=== PATIENT | male | born 1950 | race Caucasian/White ===

== ENCOUNTER 2016-12-10 09:11 | Emergency (ER) | payer BC, OTHER ==
--- NOTE | 2016-12-10 09:24 | EDM.PDOC ---
ED HPI NEURO - General Chief Complaint: Neuro Symptoms/Deficits Stated Complaint: NUMBNESS IN R HAND/TONGUE Time Seen by Provider: 12/10/16 09:22 Source of Information: Reports: Patient History Limitations: Reports: No limitations - History of Present Illness INITIAL COMMENTS - FREE TEXT/NARRATIVE: 65-year-old male presents to the ED stating that he appreciates the right hemifacial paresthesias and that half of his tongue did not feel right upon awakening around 0330 hours this morning. He drank some water and had no trouble swallowing. Subsequently he identified that his right arm and hand were getting weaker and he dropped his [place] could not offer about a cup of coffee. He appreciated things do not go right into him to the ED. Of note he states he was in atrial fibrillation and underwent ablation surgery about 12 years ago in [place] and was off medication ever since. On the monitor today he's in atrial fibrillation in the 130s. He is aware of slight palpitations at times but he is unaware of how long he could of been in atrial fibrillation. He has a slight headache. No nausea or vomiting. No visual acuity changes. He can walk again does not feel off balance. Symptom Onset Date: 12/10/16 Symptom Onset Time: 03:30 Timing/Duration: Reports: Hour(s): Location (Neuro Complaint): Reports: face (This is usually wakes up to get ready for work.), upper extremity, right (Right hand and forearm aren't working right) Quality (Neuro Complaint): Reports: numbness, tingling, weakness, altered sensation, altered speech (Face and right hand speech is altered because his tongue wasn't working right.). Denies: altered gait Severity: moderate Improves with: Reports: None Worsens with: Reports: None Context, General: Reports: Other (With the symptoms of one 0330 hours this morning). Denies: Activity, Exercise, Lifting, Sick contact, Trauma Associated Symptoms: Reports: headaches. 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 As usual.) - Related Data Allergies/ADRs: Allergies Allergy/AdvReac Type Severity Reaction Status Date / Time No Known Allergies Allergy Verified 12/10/16 09:58 Home Meds: Home Meds Aspirin [Ecotrin] 325 mg PO DAILY 11/18/14 [History] Past Medical History Cardiovascular History: Reports: Afib (Was fibrillation and had underwent cardiac ablation in [place] 12 years ago was taken off meds at that time he has no allergies never gone back into atrial fibrillation prior.) Musculoskeletal History: Reports: Back pain, chronic, Osteoarthritis (Occasional ) Social & Family History - Tobacco Use Smoking Status *Q: Never Smoker - Recreational Drug Use Recreational Drug Use: No - Living Situation & Occupation Living situation: Reports: Occupation: employed ED ROS GENERAL - Review of Systems Review Of Systems: See Below Constitutional: Denies: fever, chills, malaise, weakness, fatigue HEENT: Reports: Glasses. Denies: Contact Lenses, Dental pain, Ear discharge Respiratory: Reports: No Symptoms Cardiovascular: Reports: Palpitations (He is aware of some menorrhagia next chest but cannot really identify that his heart was racing per se.) Endocrine: Reports: no symptoms GI/Abdominal: Reports: No symptoms : Reports: no symptoms, other Musculoskeletal: Reports: back pain (Nocturia x2) Skin: Reports: no symptoms, change in color Neurological: Reports: No Symptoms, Headache, Numbness (Slight), Paresthesia ( right side of his face right tongue right hand.), Tingling (One status post right total), Trouble Speaking, Weakness, Change in Speech. Denies: Dizziness, Pre-Existing Deficit ( right forearm and right hand. ), Seizure, Syncope, Tremors (Sounds dysarthric because his tongue wasn't working right.), Difficulty Walking, Gait Disturbance Psychiatric: Reports: No symptoms Hematologic/Lymphatic: Reports: no symptoms Immunologic: Reports: no symptoms ED EXAM, NEURO - Physical Exam Exam: See Below Exam Limited By: No limitations General Appearance: alert, WD/WN, anxious, mild distress Eye Exam: bilateral eye: normal fundi, normal inspection, PERRL Ears: normal TMs Throat/Mouth: Normal inspection, Normal lips, Normal teeth, Normal gums, Normal oropharynx Head Exam: atraumatic, normocephalic Neck: normal inspection, supple, non-tender, full range of motion. No: carotid bruit, lymphadenopathy (L), lymphadenopathy (R), thyromegaly Respiratory/Chest: no respiratory distress, lungs clear, normal breath sounds, no accessory muscle use Cardiovascular: no edema (Monitor reveals a fibrillation in the 130s.), no gallop, no murmur, no rub, irregularly irregular GI/Abdominal: normal bowel sounds, soft, non tender, no organomegaly, no abnormal bruit, no mass, other (Male) Exam: No hernia (Mildly obese.) Neurological: alert, normal mood/affect, normal dorsiflexion, normal gait, oriented x 3, abnormal sensation (To pinprick hands and forearm.), other (H. is dysarthric. Tongue is working well. Your glucose slightly to the right side. Push against cheek with his tongue equally bilaterally.). No: CN II-XII intact , normal reflexes, abnormal finger to nose, Babinski, tremor, straight leg raise (L), saddle anesthesia, difficulty walking DTR: 0: achilles (R), achilles (L), 1+: bicep (R), bicep (L), patella (R), patella (L) Back Exam: normal inspection, full range of motion. No: CVA tenderness (L), CVA tenderness (R) Extremities: normal inspection, normal range of motion (Grade 4/5 motor power and tone in the right upper extremity.), non-tender, no pedal edema, normal capillary refill, other (No pronator drift.) Psychiatric: normal affect, normal mood Skin Exam: Warm, Dry, Intact, Normal color, No rash EKG INTERPRETATION EKG Date: 12/10/16 Time: 09:35 Rhythm: a-fib (With rate 96 260 per minute.) Rate (beats/min): 132 [place]: normal P-wave: absent QRS: normal ST-T: depressed (Minimal ST depression V4 to V6 leads.) QT: normal Course - Vital Signs Last Recorded V/S: Last Vital Signs Temp Pulse 103 H 12/10/16 10:07 Resp BP 97/65 12/10/16 10:07 Pulse Ox - Orders/Labs/Meds Orders: Active Orders 24 hr Category Date Time Status Blood Glucose Check, Bedside [RC] ONETIME Care 12/10/16 09:24 Active EKG Documentation Completion [RC] STAT Care 12/10/16 09:23 Active Chest 1V Frontal [CR] Stat Exams 12/10/16 09:23 Taken Diltiazem [Cardizem] 100 mg Med 12/10/16 10:00 Active Sodium Chloride 0.9% [Normal Saline] 100 ml IV ASDIRECTED Sodium Chloride 0.9% [Normal Saline] 1,000 ml Med 12/10/16 09:30 Active IV ASDIRECTED Medication Orders Sodium Chloride (Normal Saline) 1,000 mls @ 150 mls/hr IV ASDIRECTED MIRELA Last Admin: 12/10/16 10:02 Dose: 150 mls/hr Diltiazem HCl 100 mg/ Sodium (Chloride) 100 mls @ 10 mls/hr IV ASDIRECTED MIRELA PRN Reason: 10 MG/HR Last Admin: 12/10/16 10:07 Dose: 10 mg/hr, 10 mls/hr Labs: Laboratory Tests 12/10/16 12/10/16 12/10/16 Range/Units 09:25 09:25 09:25 WBC 6.16 (4.23-9.07) K/mm3 RBC 5.04 (4.63-6.08) M/mm3 Hgb 14.8 (13.7-17.5) gm/L Hct 43.0 (40.1-51.0) % MCV 85.3 (79.0-92.2) fl MCH 29.4 (25.7-32.2) pg MCHC 34.4 (32.2-35.5) g/dl RDW Std Deviation 40.6 (35.1-43.9) fL Plt Count 161 L (163-337) K/mm3 MPV 10.3 (9.4-12.3) fl Neutrophils % (Manual) 81 H (40-60) % Band Neutrophils % 0 (0-10) % Lymphocytes % (Manual) 17 L (20-40) % Atypical Lymphs % 0 % Monocytes % (Manual) 2 (2-10) % Eosinophils % (Manual) 0 L (0.8-7.0) % Basophils % (Manual) 0 L (0.2-1.2) Platelet Estimate Adequate RBC Morph Comment Normal PT 10.1 (8.0-13.0) SECONDS INR 0.93 APTT 27 (22-36) SECONDS Sodium 138 (136-145) mEq/L Potassium 4.4 (3.5-5.1) mEq/L Chloride 104 (98-107) mEq/L Carbon Dioxide 26 (21-32) mEq/L Anion Gap 12.4 (5-15) BUN 18 (7-18) mg/dL Creatinine 0.7 (0.7-1.3) mg/dL Est Cr Clr Drug Dosing TNP Estimated GFR (MDRD) > 60 (>60) mL/min BUN/Creatinine Ratio 25.7 H (14-18) Glucose 127 H (80-115) mg/dL Calcium 8.8 (8.5-10.1) mg/dL Total Bilirubin 1.0 (0.2-1.0) mg/dL AST 36 (15-37) U/L ALT 58 (16-63) U/L Alkaline Phosphatase 74 (46-116) U/L CK-MB (CK-2) 10.2 H (0-3.6) ng/ml Troponin I < 0.017 (0.00-0.056) ng/mL B-Natriuretic Peptide (0-100) pg/mL Total Protein 6.9 (6.4-8.2) g/dl Albumin 4.0 (3.4-5.0) g/dl Globulin 2.9 gm/dL Albumin/Globulin Ratio 1.4 (1-2) 12/10/16 Range/Units 09:25 WBC (4.23-9.07) K/mm3 RBC (4.63-6.08) M/mm3 Hgb (13.7-17.5) gm/L Hct (40.1-51.0) % MCV (79.0-92.2) fl MCH (25.7-32.2) pg MCHC (32.2-35.5) g/dl RDW Std Deviation (35.1-43.9) fL Plt Count (163-337) K/mm3 MPV (9.4-12.3) fl Neutrophils % (Manual) (40-60) % Band Neutrophils % (0-10) % Lymphocytes % (Manual) (20-40) % Atypical Lymphs % % Monocytes % (Manual) (2-10) % Eosinophils % (Manual) (0.8-7.0) % Basophils % (Manual) (0.2-1.2) Platelet Estimate RBC Morph Comment PT (8.0-13.0) SECONDS INR APTT (22-36) SECONDS Sodium (136-145) mEq/L Potassium (3.5-5.1) mEq/L Chloride (98-107) mEq/L Carbon Dioxide (21-32) mEq/L Anion Gap (5-15) BUN (7-18) mg/dL Creatinine (0.7-1.3) mg/dL Est Cr Clr Drug Dosing Estimated GFR (MDRD) (>60) mL/min BUN/Creatinine Ratio (14-18) Glucose (80-115) mg/dL Calcium (8.5-10.1) mg/dL Total Bilirubin (0.2-1.0) mg/dL AST (15-37) U/L ALT (16-63) U/L Alkaline Phosphatase (46-116) U/L CK-MB (CK-2) (0-3.6) ng/ml Troponin I (0.00-0.056) ng/mL B-Natriuretic Peptide 133 H (0-100) pg/mL Total Protein (6.4-8.2) g/dl Albumin (3.4-5.0) g/dl Globulin gm/dL Albumin/Globulin Ratio (1-2) Meds: Medications Generic Name Dose Route Start Last Admin Trade Name Freq PRN Reason Stop Dose Admin Sodium Chloride 1,000 mls @ 150 mls/hr 12/10/16 09:30 12/10/16 10:02 Normal Saline IV 150 mls/hr ASDIRECTED MIRELA Administration Diltiazem HCl 100 mg/ Sodium 100 mls @ 10 mls/hr 12/10/16 10:00 12/10/16 10: 07 Chloride IV 10 mg/hr ASDIRECTED MIRELA 10 mls/hr 10 MG/HR Administration Discontinued Medications Generic Name Dose Route Start Last Admin Trade Name Freq PRN Reason Stop Dose Admin Diltiazem HCl 10 mg 12/10/16 09:51 12/10/16 10:02 Diltiazem IVPUSH 12/10/16 09:52 10 mg ONETIME ONE Administration - Radiology Interpretation Free Text/Narrative:: 65-year-old male presents the ED with right hemifacial numbness tingling and weakness and noted dysarthria. He appreciates that the words are coming out right when he speaks because his tongue doesn't seem to work right. As the morning went on to appreciate his right arm wasn't working quite right either. He got his keys he could not hang onto a cup of coffee he was just drop out of his hand. Of note she is right-hand dominant. He felt something wasn't quite right in his chest the last few days but he is now well aware of palpitations. We'll set up to the monitor was found to be in each of fibrillation with a rapid ventricular rate in the 130s and a gauze and as high as 160. Previous ablation for atrial fibrillation 12 years ago in [place]. He has not been on any medication since. He takes an aspirin 325 mg once daily which he did take this morning. CT of the head is to be done immediately. Blood pressure is controlled at present. Routine labs including PT PTT to be done. - Re-Assessments/Exams Free Text/Narrative Re-Assessment/Exam: 12/10/16 09;35: CT of the brain appears normal without any intracranial hemorrhage or mass effect. He'll be started on Cardizem I am milligram IV bolus and then 10 mg per hour to reduce his rate. The question is whether to anticoagulate him or not. In view of stroke symptoms I therefore contacted the stroke unit in [place] in [place]. They felt as result was indicated at this point time. He needs further investigation by way of transesophageal echo to assess clot load in his heart i.e. ATRIA. Preemptive to produce a clot load in his heart to cause his stroke he is probably been in atrial fibrillation for greater than 48 hours. An MRI of the brain to be done to identify the infarct. Decisions then can be made as to need for anticoagulation or intervention. He' ll thus be sent to [place] via airplane. Dr. Harris hospitalist has accepted care. Heart rate was in the 2 range when he was discharged in his BP was 122/90. Low- dose aspirin this morning to further aspirin was provided. Departure - Departure Time of Disposition: 10:30 Disposition: DC/Tfer to Acute Hospital 02 Condition: fair Clinical Impression: Atrial fibrillation with rapid ventricular response, Cerebrovascular accident ( CVA) determined by clinical assessment Additional Instructions: Patient was sent to the stroke unit in [facility] due to his unusual circumstances of development of new onset atrial fibrillation with suspect clot load and a PO2 of dislodge and cause an embolus to his brain causing CVA with right hemifacial and right arm weakness. He requires echocardiogram likely transesophageal to establish clot within a few to decide on how to manage him. MRI of the brain to establish infarct. Spoke with neurology and Dr. Harris hospitalist at that facility patient sent by airplane to [place]. - My Orders Last 24 Hours: My Active Orders 12/10/16 09:23 EKG Documentation Completion [RC] STAT Chest 1V Frontal [CR] Stat 12/10/16 09:24 Blood Glucose Check, Bedside [RC] ONETIME 12/10/16 09:30 Sodium Chloride 0.9% [Normal Saline] 1,000 ml IV ASDIRECTED 12/10/16 10:00 Diltiazem [Cardizem] 100 mg Sodium Chloride 0.9% [Normal Saline] 100 ml IV ASDIRECTED - Assessment/Plan Last 24 Hours: My Active Orders 12/10/16 09:23 EKG Documentation Completion [RC] STAT Chest 1V Frontal [CR] Stat 12/10/16 09:24 Blood Glucose Check, Bedside [RC] ONETIME 12/10/16 09:30 Sodium Chloride 0.9% [Normal Saline] 1,000 ml IV ASDIRECTED 12/10/16 10:00 Diltiazem [Cardizem] 100 mg Sodium Chloride 0.9% [Normal Saline] 100 ml IV ASDIRECTED
[2016-12-10] MEDS ORDERED: Sodium Chloride 0.9% 1,000 ML IV SCH (09:30)
--- NOTE | 2016-12-10 09:46 | CT ---
Head CT Technique: Multiple axial sections through the brain were obtained. Intravenous contrast was not utilized. Comparison: No previous intracranial imaging. Findings: Ventricles along the basal cisterns and sulci over the convexities are mildly prominent. No abnormal parenchymal densities are seen. No evidence of intracranial hemorrhage. No midline shift or mass effect is seen. Bone window settings were reviewed which shows no discrete calvarial abnormality. Visualized sinuses are clear. Impression: 1. No acute intracranial abnormality is appreciated. Diagnostic code #1
[2016-12-10] MEDS ORDERED: Diltiazem 25 MG/5 ML SDV IVPUSH ONE (09:51)
[2016-12-10] MEDS ORDERED: Diltiazem 100 MG in Sodium Chloride 0.9% 100 ML IV SCH (10:00)
[2016-12-10 11:38] VITALS: BP 132/80
--- NOTE | 2016-12-11 12:21 | CR ---
Chest: Portable view of the chest was obtained. Comparison: No previous chest x-ray. Heart size is normal. Tortuous thoracic aorta is seen. Lungs are clear. Bony structures are grossly intact. Previous left shoulder surgery is noted with secondary degenerative change seen within the glenohumeral joint. Impression: 1. Incidental findings. Nothing acute is seen on portable chest x-ray. Diagnostic code #2
== END 2016-12-10 10:50 ==
LOC: JD.ED 09:11
DX: I63.9 Cerebral infarction, unspecified (principal); I48.91 Unspecified atrial fibrillation; Z79.82 Long term (current) use of aspirin
CPT/HCPCS: 36415; 70450; 71010; 80053; 82553; 83880; 84484; 85025; 85610; 85730; 93005; 96365; 96376; 99285; J7030; J7040; J3490